=== PATIENT | female | born 1995 | race Caucasian/White ===

== ENCOUNTER 2016-12-06 01:00 | Emergency (ER) | payer BC ==
[~2016-12-06] VITALS: Ht 170.2 cm; Wt 90.4 kg
[~2016-12-06 01:00] MED LIST: AMOX500T PO
[2016-12-06 01:13] VITALS: TEMP 37; Ht 170.2 cm; Wt 90.4 kg
[2016-12-06] MEDS ORDERED: ALUMINUM/MAGNESIUM SUSP 30 ML UDC ONE (01:21)
[2016-12-06] MEDS ORDERED: LIDOCAINE HCL 2% VISC SOLN 20 ML UDC ONE (01:22)
[2016-12-06] MEDS ORDERED: ALUMINUM/MAGNESIUM SUSP 30 ML UDC PO STA (01:26)
[2016-12-06] MEDS ORDERED: LIDOCAINE HCL 2% VISC SOLN 20 ML UDC PO STA (01:26)
[2016-12-06 01:28] VITALS: O2SAT 99
[2016-12-06] MEDS ORDERED: PSEU30TA20 PO (01:48)
[2016-12-06] MEDS ORDERED: BCPILLS PO (01:48)
[2016-12-06] MEDS ORDERED: CETI10TA73 PO (01:48)
[2016-12-06] MEDS ORDERED: PHEN-905 PO (01:49)
[2016-12-06 01:57] LABS: BASO % 0.3 %; BASO ABS # 0.02 K/uL (0-0.2); COMPLETE YES; EOS % 2.4 %; IG% 0.2 %; LYMPH % 22.3 %; LYMPH ABS # 1.42 K/uL (1.2-3.4); MEAN CELL VOLUME 83.5 fL (80-100); MEAN CORPUSCULAR HEMOGLOBIN 29.7 pg (25-34); MEAN CORPUSCULAR HGB CONC 35.5 g/dl (32-36); NEUT % 65.8 %; PLATELET COUNT 161 K/uL (130-400); RED BLOOD COUNT 4.55 M/uL (4.2-5.4); WHITE BLOOD COUNT 6.36 K/uL (4.8-10.8)
[2016-12-06] MEDS ORDERED: SUCRALFATE 1 GM/10 ML UDC PO ONE (02:00)
[2016-12-06] MEDS ORDERED: ONDANSETRON INJ 2 MG/ML 2 ML VIAL IV STA (02:07)
[2016-12-06] MEDS ORDERED: SODIUM CHLORIDE 0.9% 1000ML 1,000 ML IV STA (02:16)
[2016-12-06 02:21] LABS: ALT/SGPT 19 U/L (12-78); AST/SGOT 9 U/L (15-37); BLOOD UREA NITROGEN 6 mg/dl (7-18); BUN/CREATININE RATIO 8.4 (10-20); CALCIUM 8.6 mg/dl (8.5-10.1); CARBON DIOXIDE 28 mmol/L (21-32); CHLORIDE 104 mmol/L (98-107); CREATININE 0.75 mg/dl (0.60-1.20); GLUCOSE 111 mg/dl (70-99); POTASSIUM 3.7 mmol/L (3.5-5.1); SODIUM 140 mmol/L (136-145)
[2016-12-06 02:26] LABS: ALKALINE PHOSPHATASE 60 U/L (45-117)
[2016-12-06 02:32] LABS: PREG INTERNAL NEGATIVE QC NEG CLEAR BACKGROUND; PREG INTERNAL POSITIVE QC POS CONTROL LINE
--- NOTE | 2016-12-06 02:41 | EMERGENCY ROOM VISIT NOTE ---
History First contact with patient: 01:15 Chief Complaint: ABDOMINAL PAIN Stated Complaint: CHEST PAINS,SINUS INFECTION Nursing Triage Summary: Patient c/o epigastric pain that woke her from sleep. C/o mild nausea at the time but now states it is gone. History of Present Illness The patient is a 21 year old female who presents to the Emergency Room with complaints of nausea, epigastric discomfort that comes and goes to the past few hours. Patient had potato cheese soup and beverages last night for dinner. She 's been taking Augmentin for a sinus infection. No history of heartburn. No prolonged epigastric discomfort. Patient denies dyspnea, fever, chills, vomiting, diarrhea, back pain, leg pain or swelling, recent travel, heart disease. No family history of heart disease or blood clots. She does not smoke. Review of Systems See HPI for pertinent positives & negatives. A total of 10 systems reviewed and were otherwise negative. Past Medical/Surgical History Appendectomy Social History Smoking Status: Never Smoker Smokeless Tobacco Use: No Drug Use: none Marital Status: single Occupation Status: [employer] Current/Historical Medications Scheduled Amoxicillin & Pot Clavulanate (Augmentin 500MG), 1 CAP PO BID Control Pills ( Control Pills), 1 TAB PO DAILY Cetirizine Hcl (All Day Allergy), 1 TAB PO DAILY Scheduled PRN Xodmlwlohjnhe-Stprsusvjw-Aohsb (Nyquil Severe Cold/Flu 5-6.25-10-325 mg/15Ml), 30 ML PO HS PRN for Nasal Congestion Pseudoephedrine (Sudafed), 30 MG PO Q4 PRN for Nasal Congestion Allergies Coded Allergies: No Known Allergies (Unverified , 12/06/16) Physical Exam Vital Signs Date Time Temp Pulse Resp B/P Pulse Ox O2 Delivery O2 Flow Rate FiO2 12/06/16 02:20 85 12 117/65 99 Room Air 12/06/16 01:36 78 12/06/16 01:29 Room Air 12/06/16 01:28 99 Room Air 12/06/16 01:13 37.0 96 20 124/82 96 Room Air Physical Exam VITALS: Vitals are noted on the nurse's note and reviewed by myself. Vital signs stable. GENERAL: Pleasant female, in no acute distress, nondiaphoretic, well-developed well-nourished. SKIN: The skin was without rashes, erythema, edema, or bruising. There is no tenting of the skin. Capillary reflex less than 2 seconds. HEAD: Normocephalic atraumatic. EARS: External auditory canals clear, tympanic membranes pearly carr without erythema or effusion bilaterally. EYES: Pupils equal round and reactive to light and accommodation. Conjunctivae without injection, sclerae without icterus. Extraocular movements intact. NOSE: Patent, turbinates without inflammation or discharge. MOUTH: Mucous membranes moist. Pharynx without erythema or exudate. Uvula midline. Airway patent. Tongue does not deviate. NECK: Supple without nuchal rigidity. No lymphadenopathy. No thyromegaly. Cervical spine is nontender. No JVD. HEART: Regular rate and rhythm without murmurs gallops or rubs. LUNGS: Clear to auscultation bilaterally without wheezes, rales or rhonchi. No dullness to percussion. No retractions or accessory muscle use. ABDOMEN: Positive bowel sounds x 4. Normal tympanic percussion. Soft, minimally tender epigastric region, no CVA tenderness, without masses or organomegaly. Rahman sign negative. No guarding or rebound tenderness. MUSCULOSKELETAL: No muscle atrophy, erythema, or edema noted. NEURO: Patient was alert and oriented to person place and time. Normal sensation to light and sharp touch. No focal neurological deficits. Medical Decision & Procedures Laboratory Results 12/06/16 01:35 Red Blood Count 4.55, Mean Corpuscular Volume 83.5, Mean Corpuscular Hemoglobin 29.7, Mean Corpuscular Hemoglobin Concent 35.5, Mean Platelet Volume 11.0, Neutrophils (%) (Auto) 65.8, Lymphocytes (%) (Auto) 22.3, Monocytes (%) (Auto) 9.0, Eosinophils (%) (Auto) 2.4, Basophils (%) (Auto) 0.3, Neutrophils # (Auto) 4.19, Lymphocytes # (Auto) 1.42, Monocytes # (Auto) 0.57, Eosinophils # (Auto) 0.15, Basophils # (Auto) 0.02 12/06/16 01:35 Test 12/06/16 01:35 12/06/16 01:47 White Blood Count 6.36 K/uL (4.8-10.8) Red Blood Count 4.55 M/uL (4.2-5.4) Hemoglobin 13.5 g/dL (12.0-16.0) Hematocrit 38.0 % (37-47) Mean Corpuscular Volume 83.5 fL (80-100) Mean Corpuscular Hemoglobin 29.7 pg (25-34) Mean Corpuscular Hemoglobin Concent 35.5 g/dl (32-36) Platelet Count 161 K/uL (130-400) Mean Platelet Volume 11.0 fL (7.4-10.4) Neutrophils (%) (Auto) 65.8 % Lymphocytes (%) (Auto) 22.3 % Monocytes (%) (Auto) 9.0 % Eosinophils (%) (Auto) 2.4 % Basophils (%) (Auto) 0.3 % Neutrophils # (Auto) 4.19 K/uL (1.4-6.5) Lymphocytes # (Auto) 1.42 K/uL (1.2-3.4) Monocytes # (Auto) 0.57 K/uL (0.11-0.59) Eosinophils # (Auto) 0.15 K/uL (0-0.5) Basophils # (Auto) 0.02 K/uL (0-0.2) RDW Standard Deviation 39.1 fL (36.4-46.3) RDW Coefficient of Variation 12.9 % (11.5-14.5) Immature Granulocyte % (Auto) 0.2 % Immature Granulocyte # (Auto) 0.01 K/uL (0.00-0.02) Anion Gap 8.0 mmol/L (3-11) Est Creatinine Clear Calc Drug Dose 137.0 ml/min Estimated GFR () 132.1 Estimated GFR (Non- 113.9 BUN/Creatinine Ratio 8.4 (10-20) Calcium Level 8.6 mg/dl (8.5-10.1) Total Bilirubin 0.3 mg/dl (0.2-1) Direct Bilirubin 0.1 mg/dl (0-0.2) Aspartate Amino Transf (AST/SGOT) 9 U/L (15-37) Alanine Aminotransferase (ALT/SGPT) 19 U/L (12-78) Alkaline Phosphatase 60 U/L (45-117) Total Creatine Kinase 45 U/L (26-192) Creatine Kinase MB < 0.5 ng/ml (0.5-3.6) Creatine Kinase MB Ratio (0-3.0) Total Protein 7.2 gm/dl (6.4-8.2) Albumin 3.4 gm/dl (3.4-5.0) Lipase 69 U/L (73-393) Human Chorionic Gonadotropin, Qual NEG (NEG) Bedside Troponin I 0.000 ng/ml (0-0.045) Medications Administered Medications (Trade) Dose Ordered Sig/Jun Route Start Time Stop Time Status Last Admin Dose Admin Al Hydroxide/Mg Hydroxide (Maalox Susp) 30 ml STK-MED ONCE .ROUTE 12/06/16 01:21 12/06/16 01:23 DC 12/06/16 01:26 30 ML Lidocaine HCl (Viscous Lidocaine 2% Soln) 20 ml STK-MED ONCE .ROUTE 12/06/16 01:22 12/06/16 01:23 DC 12/06/16 01:26 20 ML Sucralfate (Carafate Susp) 1 gm NOW ONCE PO 12/06/16 02:00 12/06/16 02:01 DC 12/06/16 02:18 1 GM Ondansetron HCl 4 mg 4 mg NOW STAT IV 12/06/16 02:07 12/06/16 02:08 DC 12/06/16 02:13 4 MG Sodium Chloride (Nss 1000ml) 1,000 ml @ 999 mls/hr Q1H1M STAT IV 12/06/16 02:16 12/06/16 03:16 12/06/16 02:19 999 MLS/HR ED Course Prior records/ancillary studies reviewed. Triage Nursing notes reviewed. Additional history obtained from friend The patient's history was concerning for epigastric discomfort Differential diagnosis: Etiologies such as esophageal spasm, cardiac, diverticulitis, PUD, biliary pathology, UTI, pancreatitis, obstruction, mesenteric ischemia, aortic pathology , infections, inflammatory bowel disease, renal colic, as well as others were entertained. Physical examination findings: As above. ER treatment provided: GI cocktail On reassessment the patient felt better. Diagnostics interpreted by me: ECG: Normal sinus, normal intervals, no acute ST-T wave changes. Impression normal sinus rhythm interpreted by myself The labs revealed negative troponin. No worrisome electrolyte abnormality Imaging studies: Chest x-ray with no acute consolidation, free air or pneumothorax per my interpretation Exam and history seem consistent with esophageal spasm. Patient has been on antibiotics and has had increased acidic foods. GI cocktail resolved her symptoms. She feels much better. She is advised to take her antibiotics with a full glass of water and stand up when she takes it. She is advised to take medications as directed. She is advised follow-up health services in a few days or here in the ER sooner for chest pain, difficulty breathing, abdominal pain, black or blood in her stool, worsening signs or symptoms or as needed. By the evaluation outlined above emergent etiologies such as appendicitis, diverticulitis, PUD, biliary pathology, UTI, pancreatitis, obstruction, mesenteric ischemia, aortic pathology, infections, inflammatory bowel disease, renal colic, as well as others were deemed relatively unlikely. The pt informed about the findings as listed above. All questions were answered and pleased with the treatment. Return instructions were outlined and the patient was discharged in stable condition. Outpatient prescription management: protonix Referral: The patient was referred back to their primary care physician for follow-up in 2 to 3 days for a recheck of the current condition. Medical Decision As above Impression Primary Impression: Abdominal discomfort, epigastric Departure Information Dispostion Home / Self-Care Condition GOOD Referrals [facility] (PCP) Patient Instructions My [facility] Additional Instructions Protonix 40 m tablet daily for the next 2 weeks. Acetaminophen(Tylenol) may be used for fever or pain. Use 1000mg every six hours as needed. Avoid using more than 3000mg in a 24 hour period. Rest and drink plenty of fluids as tolerated. Continue current medications. Avoid acidic foods. Eat small meals. Avoid strenuous activities and anything that worsens your pain. Resume normal activities once your symptoms resolve. Return to the ER immediately for worsening or persistent chest pain, abdominal pain, vomiting, fevers, chest pains, difficulty breathing, worsening of your condition, or as needed. Follow up with your primary physician in 2-3 days for a recheck of your current condition.
[2016-12-06] MEDS ORDERED: PANT40TA PO (02:42)
[2016-12-06 02:53] VITALS: BP 105/71; PULSE 73; O2SAT 97
--- NOTE | 2016-12-06 08:12 | DIAGNOSTIC IMAGING REPORT ---
SINGLE VIEW CHEST CLINICAL HISTORY: Atypical chest pain. FINDINGS: An AP, portable, upright chest radiograph is obtained. No prior studies are available for comparison at the time of dictation. The examination is degraded by portable technique and patient rotation. The cardiomediastinal silhouette is unremarkable. The lungs and pleural spaces are clear. No pneumothorax is seen. The bony thorax is grossly intact. IMPRESSION: No active disease in the chest. Electronically signed by: Jean Paul Simms M.D. 12/06/2016 8:10 AM Dictated Date/Time: 12/06/2016 8:09 AM
== END 2016-12-06 02:57 | disposition home or self-care (01) ==
LOC: C.EDB 01:01
DX: R10.13 Epigastric pain (principal); Z98.890 Other specified postprocedural states